=== PATIENT | female | born 1985 | race African-American/Black ===

== ENCOUNTER 2018-06-12 02:10 | Emergency (ER) | payer MEDICAID, MEDICARE ==
[~2018-06-12] VITALS: Ht 170.2 cm; Wt 81.0 kg
[2018-06-12 04:44] VITALS: BP 109/77
[2018-06-12 04:44] LABS: CLARITY URINE CLEAR (CLEAR); COLOR URINE ORANGE (YELLOW); KETONES URINE NEGATIVE (NEGATIVE); LEUKOCYTE ESTERASE URINE 1+ (NEGATIVE); NITRITE URINE POSITIVE (NEGATIVE); OCCULT BLOOD URINE NEGATIVE (NEGATIVE); PROTEIN URINE NEGATIVE (NEGATIVE); SPECIFIC GRAVITY URINE 1.018 (1.005-1.030)
== END 2018-06-12 05:05 | disposition home or self-care (01) ==
LOC: ER 02:10
DX: N39.0 Urinary tract infection, site not specified (principal); R20.0 Anesthesia of skin
CPT/HCPCS: 81025; 99283

== ENCOUNTER 2019-05-29 21:27 | Emergency (ER) | payer MEDICARE ==
[~2019-05-29] VITALS: Ht 170.2 cm; Wt 88.0 kg
[2019-05-29 21:49] VITALS: BP 116/86
[2019-05-29] MEDS ORDERED: KETOROLAC 60MG/2ML VIAL IM ONE (23:45)
== END 2019-05-30 00:09 | disposition home or self-care (01) ==
LOC: ER 21:27
DX: R51 Headache (principal); R30.0 Dysuria; R11.0 Nausea; R07.89 Other chest pain; J45.909 Unspecified asthma, uncomplicated
CPT/HCPCS: 93005; 99283